=== PATIENT | male | born 1945 | race Hispanic/Latino ===

== ENCOUNTER → 2020-03-02 | Outpatient (CLI) | payer OTHER | END | disposition home or self-care (01) | LOC: SHCH 11:28 | PROVIDERS: ATTEND Internal Medicine Cardiovascular Disease | DX: I65.23 Occlusion and stenosis of bilateral carotid arteries (principal); R09.89 Other specified symptoms and signs involving the circulatory and respiratory systems | CPT/HCPCS: 93880 ==

== ENCOUNTER → 2020-03-05 | Outpatient (CLI) | payer OTHER ==
[~2020-03-05] MED LIST: REGADENOSON 0.4 MG/5 ML PF SYG IVP SCH
== END | disposition home or self-care (01) ==
LOC: SHCH 09:00 → EDUNIT# 09:00
PROVIDERS: ATTEND Internal Medicine Cardiovascular Disease
DX: R06.02 Shortness of breath (principal)
CPT/HCPCS: 78452; 93017; 96374; A9500 ×2; J2785

== ENCOUNTER → 2020-03-06 | Outpatient (CLI) | payer OTHER | END | disposition home or self-care (01) | LOC: EDUNIT# 11:30 → SHCH 11:34 | PROVIDERS: ATTEND Internal Medicine Cardiovascular Disease | DX: I10 Essential (primary) hypertension (principal) | CPT/HCPCS: 93306; 93356 ==

== ENCOUNTER → 2020-09-09 | Outpatient (CLI) | payer OTHER | END | disposition home or self-care (01) | LOC: SHCH 08:40 | PROVIDERS: ATTEND Internal Medicine Cardiovascular Disease | DX: I65.23 Occlusion and stenosis of bilateral carotid arteries (principal); I71.4 Abdominal aortic aneurysm, without rupture; R94.39 Abnormal result of other cardiovascular function study | CPT/HCPCS: 93880; 93978 ==